=== PATIENT | male | born 1985 | race American Indian/Alaskan Native ===

== ENCOUNTER 2017-04-05 16:52 | Emergency (ER) | payer OTHER ==
[2017-04-05 17:08] VITALS: BP 125/80
[2017-04-05] MEDS ORDERED: Sodium Chloride 0.9% 10 ML Syringe FLUSH PRN (17:14)
--- NOTE | 2017-04-05 18:46 | EDM.PDOC ---
ED HPI GENERAL MEDICAL PROBLEM - General Chief Complaint: Neuro Symptoms/Deficits Stated Complaint: SENT FROM [facility] Time Seen by Provider: 04/05/17 17:00 Source of Information: Reports: Patient History Limitations: Reports: No limitations - History of Present Illness INITIAL COMMENTS - FREE TEXT/NARRATIVE: The patient developed some pain in his left neck that radiates to his left arm. He went to his doctor and he was concerned he had some left sided facial droop. The patient has some numbness to his left face and left arm. He also had some chest tightness. He says that is mostly gone. He has a mild headache. He has no vision changes or double vision. He has no abdominal pain , nausea and vomiting. he has no fever but he has some chills. He has no dysuria. This has never happened before. Onset: gradual Duration: Hour(s): Location: Reports: face, chest, upper extremity, left Quality: Reports: Sharp Severity: mild Improves with: Reports: None Worsens with: Reports: None Context: Reports: Other (He was at his computer) Associated Symptoms: Reports: chest pain, headaches. Denies: cough, fever/ chills, nausea/vomiting, shortness of breath - Related Data Allergies Allergy/AdvReac Type Severity Reaction Status Date / Time No Known Allergies Allergy Verified 04/05/17 17:08 Home Meds: Home Meds Furosemide [Lasix] 04/05/17 [History] Levothyroxine 04/05/17 [History] Omeprazole 04/05/17 [History] Past Medical History Cardiovascular History: Reports: Hypertension Social & Family History - Tobacco Use Smoking Status *Q: Never Smoker Second Hand Smoke Exposure: Yes - Caffeine Use Caffeine Use: Reports: None - Alcohol Use Days Per Week of Alcohol Use: 0 - Recreational Drug Use Recreational Drug Use: No ED ROS GENERAL - Review of Systems Review Of Systems: See Below Constitutional: Reports: no symptoms HEENT: Reports: Other (Left facial numbness and weakness) Respiratory: Reports: No Symptoms Cardiovascular: Reports: Chest pain Endocrine: Reports: no symptoms GI/Abdominal: Reports: No symptoms : Reports: no symptoms Musculoskeletal: Reports: no symptoms Skin: Reports: no symptoms Neurological: Reports: Headache, Numbness ED EXAM, NEURO - Physical Exam Exam: See Below Exam Limited By: No limitations General Appearance: alert, no apparent distress Ears: normal external exam Nose: normal inspection Head Exam: atraumatic, normocephalic Neck: normal inspection Respiratory/Chest: no respiratory distress, lungs clear, normal breath sounds Cardiovascular: regular rate, rhythm, no edema, no murmur GI/Abdominal: Soft, Non-Tender, No Organomegaly, No Mass Neurological: alert, no motor/sensory deficits, oriented x 3 EKG INTERPRETATION EKG Date: 04/05/17 Time: 17:22 Rhythm: NSR Rate (beats/min): 69 [place]: normal P-wave: present QRS: normal ST-T: normal QT: normal Course - Vital Signs Last Recorded V/S: Last Vital Signs Temp 98.5 F 04/05/17 16:58 Pulse 71 04/05/17 16:58 Resp 18 04/05/17 16:58 BP 125/80 04/05/17 16:58 Pulse Ox 100 04/05/17 16:58 - Orders/Labs/Meds Orders: Active Orders 24 hr Category Date Time Status Cardiac Monitoring [RC] . DIRECTED Care 04/05/17 17:14 Active EKG Documentation Completion [RC] STAT Care 04/05/17 17:14 Active Peripheral IV Care [RC] . DIRECTED Care 04/05/17 17:15 Active Head wo Cont [CT] Routine Exams 04/05/17 17:21 Taken Sodium Chloride 0.9% [Saline Flush] Med 04/05/17 17:14 Active 10 ml FLUSH ASDIRECTED PRN Peripheral IV Insertion Adult [OM.PC] Stat Oth 04/05/17 17:14 Ordered Medication Orders Sodium Chloride (Saline Flush) 10 ml FLUSH ASDIRECTED PRN PRN Reason: Keep Vein Open Last Admin: 04/05/17 17:25 Dose: 10 ml Labs: Laboratory Tests 04/05/17 04/05/17 Range/Units 17:25 17:25 WBC 6.96 (4.23-9.07) K/mm3 RBC 5.52 (4.63-6.08) M/mm3 Hgb 14.8 (13.7-17.5) gm/L Hct 44.8 (40.1-51.0) % MCV 81.2 (79.0-92.2) fl MCH 26.8 (25.7-32.2) pg MCHC 33.0 (32.2-35.5) g/dl RDW Std Deviation 40.7 (35.1-43.9) fL Plt Count 298 (163-337) K/mm3 MPV 10.3 (9.4-12.3) fl Neut % (Auto) 57.2 (34.0-67.9) % Lymph % (Auto) 32.8 (21.8-53.1) % [place] % (Auto) 7.9 (5.3-12.2) % Eos % (Auto) 1.6 (0.8-7.0) Baso % (Auto) 0.4 (0.1-1.2) % Neut # (Auto) 3.98 (1.78-5.38) K/mm3 Lymph # (Auto) 2.28 (1.32-3.57) K/mm3 [place] # (Auto) 0.55 (0.30-0.82) K/mm3 Eos # (Auto) 0.11 (0.04-0.54) K/mm3 Baso # (Auto) 0.03 (0.01-0.08) K/mm3 Sodium 138 (136-145) mEq/L Potassium 3.7 (3.5-5.1) mEq/L Chloride 103 (98-107) mEq/L Carbon Dioxide 28 (21-32) mEq/L Anion Gap 10.7 (5-15) BUN 6 L (7-18) mg/dL Creatinine 0.7 (0.7-1.3) mg/dL Est Cr Clr Drug Dosing 172.80 mL/min Estimated GFR (MDRD) > 60 (>60) mL/min BUN/Creatinine Ratio 8.6 L (14-18) Glucose 79 (74-106) mg/dL Calcium 8.6 (8.5-10.1) mg/dL Total Bilirubin 0.4 (0.2-1.0) mg/dL AST 15 (15-37) U/L ALT 32 (16-63) U/L Alkaline Phosphatase 147 H (46-116) U/L Troponin I < 0.017 (0.00-0.056) ng/mL Total Protein 7.8 (6.4-8.2) g/dl Albumin 3.6 (3.4-5.0) g/dl Globulin 4.2 gm/dL Albumin/Globulin Ratio 0.9 L (1-2) TSH 3rd Generation 0.015 L (0.358-3.74) uIU/mL Meds: Medications Generic Name Dose Route Start Last Admin Trade Name Sweetie PRN Reason Stop Dose Admin Sodium Chloride 10 ml 04/05/17 17:14 04/05/17 17:25 Saline Flush FLUSH 10 ml ASDIRECTED PRN Administration Keep Vein Open - Re-Assessments/Exams Free Text/Narrative Re-Assessment/Exam: 04/05/17 18:47 I ordered an IV saline lock, EKG, CT of his head and labs. His EKG shows nothing acute. 04/05/17 19:23 His EKG shows NSR at a rate of 69 with no acute changes. His CBC looks good. His CMP looks good except his Alk Phos was a little elevated at 147. His troponin was negative. His TSH was low at 0.015. He had thyroid cancer and had his thyroid removed. 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 His CT shows prominent cisterna magna and arachnoid cyst which are benign findings. No acute intracranial abnormality is seen. Sinus findings within the right maxillary sinus which appears to be chronic. This is a benign finding but it may be causing some symptoms for him. I will have him follow up with Dr Mendosa. Departure - Departure Time of Disposition: 07:30 Disposition: Home, Self-Care 01 Condition: good Clinical Impression: Atypical chest pain, Left arm numbness, Left facial numbness, Arachnoid cyst - Discharge Information Referrals: Demetrius Mendosa MD [Consulting Physician] - 1 Week Forms: ED Department Discharge Additional Instructions: Drink plenty of fluids. Follow up with your doctor and get a referral to Dr Mendosa the neurosurgeon at [facility] in [place]. Please return if you are worse. - My Orders Last 24 Hours: My Active Orders 04/05/17 17:14 Cardiac Monitoring [RC] . DIRECTED EKG Documentation Completion [RC] STAT Sodium Chloride 0.9% [Saline Flush] 10 ml FLUSH ASDIRECTED PRN Peripheral IV Insertion Adult [OM.PC] Stat 04/05/17 17:15 Peripheral IV Care [RC] . DIRECTED 04/05/17 17:21 Head wo Cont [CT] Routine - Assessment/Plan Last 24 Hours: My Active Orders 04/05/17 17:14 Cardiac Monitoring [RC] . DIRECTED EKG Documentation Completion [RC] STAT Sodium Chloride 0.9% [Saline Flush] 10 ml FLUSH ASDIRECTED PRN Peripheral IV Insertion Adult [OM.PC] Stat 04/05/17 17:15 Peripheral IV Care [RC] . DIRECTED 04/05/17 17:21 Head wo Cont [CT] Routine
--- NOTE | 2017-04-06 15:51 | CT ---
Head CT Technique: Multiple axial sections through the brain were obtained. Intravenous contrast was not utilized. Comparison: No previous intracranial imaging is available. Findings: Large cisterna magna is seen. This is a normal variant. Arachnoid cyst is noted within the anterior temporal fossa which is benign. No abnormal parenchymal densities are seen. Ventricles along with basal cisterns and sulci over the convexities are otherwise within normal limits. No abnormal parenchymal densities are seen. No evidence of intracranial hemorrhage. No midline shift or mass effect is seen. Bone window settings were reviewed which shows partially visualized mucosal thickening or retention cysts within the right inferior maxillary sinus. Other sinuses are clear. No calvarial abnormality is appreciated. Impression: 1. Prominent cisterna magna and arachnoid cyst as noted above which are benign findings. 2. No acute intracranial abnormality is seen. 3. Sinus findings within the right maxillary sinus which appear to be chronic. Diagnostic code #2 MTDD
== END 2017-04-05 19:40 | disposition home or self-care (01) ==
LOC: JD.ED 16:52
DX: R07.89 Other chest pain (principal); R20.0 Anesthesia of skin; G93.0 Cerebral cysts; I10 Essential (primary) hypertension
CPT/HCPCS: 36415; 70450; 80053; 84443; 84484; 85025; 93005; 99285; J7050; 99284

== ENCOUNTER 2017-10-11 12:59 | Emergency (ER) | payer BC, OTHER ==
[2017-10-11 13:11] VITALS: BP 111/62
--- NOTE | 2017-10-11 14:10 | EDM.PDOC ---
ED HPI GENERAL MEDICAL PROBLEM - General Chief Complaint: Chest Pain Stated Complaint: CHEST PAIN Time Seen by Provider: 10/11/17 13:29 Source of Information: Reports: Patient, Family (mother) History Limitations: Reports: No Limitations - History of Present Illness INITIAL COMMENTS - FREE TEXT/NARRATIVE: 32-year-old male presents for evaluation and treatment of chest discomfort, dizziness, lightheadedness, headaches and a warm sensation in his back. Patient reports that yesterday around 5 PM he developed dizziness and pain on the left side of his neck. He states today when he awoke he had chest discomfort described as a "poking" sensation on the left side of his chest. States this lasts for only a few seconds. No pain currently. Patient reports all morning he' s been feeling a warm sensation in the center of his back. He describes this as his "blood stops flowing ". He states that he felt cool. Reports associated symptoms of malaise, weakness, headaches, lightheadedness and fatigue. He denies any current chest pain, shortness of breath, fevers, cough, nausea, vomiting or syncope. He denies any pain or swelling in his legs. Patient also reports tingling to the dorsal left hand. States his this started a few days ago. No other numbness or tingling. Denies any abdominal pain. Patient reports that he sees cardiology. Sees Dr. Ibarra in [place]. Last visit was a couple months ago. Patient reports last week he was diagnosed with atrial fibrillation in [place]. He was in A. fib for approximately 6 hours. Reports that he had a conversion done which successfully converted him to normal sinus rhythm. He was started on metoprolol. He states he has not taken any metoprolol today. Patient reports he has previously had a chemical stress test done in [place] approximately 2 or 3 years ago. He has also had a Holter monitor in [place]. Does not sound he's ever had a cardiac angiogram. Patient states he is not a diabetic. Patient states does not smoke. He is unsure if he has high cholesterol. Reports his blood pressures normally run low and his pulse is normally in the 50s to 60s. Patient also reports that he develops chest pain with eating. He states that this is going on for several years. Is steadily getting worse. He states that he has now onlt eating things such as yogurt and rice but whenever he eats he develops heart racing, dizziness and chest discomfort. He has never had an upper endoscopy done. He denies any weight loss or weight gain. Denies any polydipsia. Patient's primary care provider is Dr. Eliz Garcia at [facility] in [place]. Past surgical history includes a cholecystectomy. Onset: Today Chest Pain Score (Numeric/FACES): 0 - Related Data Allergies Allergy/AdvReac Type Severity Reaction Status Date / Time No Known Allergies Allergy Verified 10/11/17 13:07 Home Meds: Home Meds Furosemide [Lasix] 20 mg PO DAILY 04/05/17 [History] Levothyroxine 175 mcg PO DAILY 04/05/17 [History] Omeprazole 20 mg PO DAILY 04/05/17 [History] Past Medical History Cardiovascular History: Reports: Afib, Hypertension Respiratory History: Reports: Sleep Apnea Endocrine/Metabolic History: Reports: Hypothyroidism Social & Family History - Tobacco Use Smoking Status *Q: Never Smoker Second Hand Smoke Exposure: Yes - Caffeine Use Caffeine Use: Reports: None - Alcohol Use Days Per Week of Alcohol Use: 0 - Recreational Drug Use Recreational Drug Use: No ED ROS GENERAL - Review of Systems Review Of Systems: See Below Constitutional: Reports: Malaise, Weakness, Fatigue. Denies: Fever, Weight Loss , Weight Gain Respiratory: Denies: Shortness of Breath Cardiovascular: Reports: Chest Pain ("poking to the left chest" none currently) , Lightheadedness. Denies: Edema, Syncope GI/Abdominal: Denies: Abdominal Pain, Nausea, Vomiting Musculoskeletal: Reports: Neck Pain (last night, left sided) Neurological: Reports: Dizziness, Headache, Tingling (left dorsal hand). Denies : Syncope ED EXAM, GENERAL - Physical Exam Exam: See Below Exam Limited By: No Limitations General Appearance: Alert, WD/WN, No Apparent Distress, Obese Eye Exam: Bilateral Eye: Normal Inspection Ears: Normal External Exam Respiratory/Chest: No Respiratory Distress, Lungs Clear, Normal Breath Sounds Cardiovascular: Normal Peripheral Pulses, Regular Rate, Rhythm, No Murmur Peripheral Pulses: 3+: Dorsalis Pedis (L), Dorsalis Pedis (R) Neurological: Alert, Oriented, Normal Cognition Psychiatric: Normal Mood, Flat Affect Skin Exam: Warm, Dry, Normal Color EKG INTERPRETATION EKG Date: 10/11/17 Time: 13:05 Rhythm: NSR Rate (Beats/Min): 60 [place]: LAD-Left [place] Deviation (mild 5 degrees) P-Wave: Present QRS: Normal ST-T: Normal QT: Normal EKG Interpretation Comments: NSR at 60 bpm. Poor "r" wave progression with delayed transition - mild AD 5 degrees. Decreased voltage in the limb leads. T wave flat in AVF. QT prolonged. Reviewed by myself and Dr. Mcnamara. Course - Vital Signs Last Recorded V/S: Last Vital Signs Temp 36.1 C 10/11/17 13:08 Pulse 61 10/11/17 13:08 Resp 16 10/11/17 13:08 BP 111/62 10/11/17 13:08 Pulse Ox 97 10/11/17 13:08 Orthostatic Blood Pressure [ 111/66 Standing] Orthostatic Blood Pressure [ 114/75 Sitting] Orthostatic Blood Pressure [ 123/60 Supine] - Orders/Labs/Meds Orders: Active Orders 24 hr Category Date Time Status Cardiac Monitoring [RC] . DIRECTED Care 10/11/17 13:38 Active EKG Documentation Completion [RC] ASDIRECTED Care 10/11/17 13:39 Active Orthostatic Vital Signs [RC] ASDIRECTED Care 10/11/17 16:25 Active Peripheral IV Care [RC] . DIRECTED Care 10/11/17 15:13 Active Peripheral IV Insertion Adult [OM.PC] Routine Oth 10/11/17 15:13 Ordered EKG 12 Lead [EK] Stat Ther 10/11/17 13:38 Ordered Labs: Laboratory Tests 10/11/17 10/11/17 10/11/17 Range/Units 14:33 14:33 14:33 WBC 7.12 (4.23-9.07) K/mm3 RBC 5.56 (4.63-6.08) M/mm3 Hgb 15.1 (13.7-17.5) gm/L Hct 44.4 (40.1-51.0) % MCV 79.9 (79.0-92.2) fl MCH 27.2 (25.7-32.2) pg MCHC 34.0 (32.2-35.5) g/dl RDW Std Deviation 38.3 (35.1-43.9) fL Plt Count 286 (163-337) K/mm3 MPV 10.4 (9.4-12.3) fl Neut % (Auto) 64.0 (34.0-67.9) % Lymph % (Auto) 26.5 (21.8-53.1) % [place] % (Auto) 7.6 (5.3-12.2) % Eos % (Auto) 1.5 (0.8-7.0) Baso % (Auto) 0.3 (0.1-1.2) % Neut # (Auto) 4.55 (1.78-5.38) K/mm3 Lymph # (Auto) 1.89 (1.32-3.57) K/mm3 [place] # (Auto) 0.54 (0.30-0.82) K/mm3 Eos # (Auto) 0.11 (0.04-0.54) K/mm3 Baso # (Auto) 0.02 (0.01-0.08) K/mm3 D-Dimer, Quantitative 1.09 H (0.19-0.59) mg/L Sodium 138 (136-145) mEq/L Potassium 4.0 (3.5-5.1) mEq/L Chloride 102 (98-107) mEq/L Carbon Dioxide 26 (21-32) mEq/L Anion Gap 14.0 (5-15) BUN 9 (7-18) mg/dL Creatinine 0.7 (0.7-1.3) mg/dL Est Cr Clr Drug Dosing 171.21 mL/min Estimated GFR (MDRD) > 60 (>60) mL/min BUN/Creatinine Ratio 12.9 L (14-18) Glucose 85 (74-106) mg/dL Hemoglobin A1c (4.50-6.20) % Calcium 9.0 (8.5-10.1) mg/dL Total Bilirubin 0.6 (0.2-1.0) mg/dL AST 22 (15-37) U/L ALT 37 (16-63) U/L Alkaline Phosphatase 143 H (46-116) U/L Troponin I < 0.017 (0.00-0.056) ng/mL Total Protein 8.1 (6.4-8.2) g/dl Albumin 3.5 (3.4-5.0) g/dl Globulin 4.6 gm/dL Albumin/Globulin Ratio 0.8 L (1-2) Lipase 92 (73-393) U/L TSH 3rd Generation 0.016 L (0.358-3.74) uIU/mL H. pylori IgG Antibody (NEGATIVE) 10/11/17 10/11/17 Range/Units 14:33 14:33 WBC (4.23-9.07) K/mm3 RBC (4.63-6.08) M/mm3 Hgb (13.7-17.5) gm/L Hct (40.1-51.0) % MCV (79.0-92.2) fl MCH (25.7-32.2) pg MCHC (32.2-35.5) g/dl RDW Std Deviation (35.1-43.9) fL Plt Count (163-337) K/mm3 MPV (9.4-12.3) fl Neut % (Auto) (34.0-67.9) % Lymph % (Auto) (21.8-53.1) % [place] % (Auto) (5.3-12.2) % Eos % (Auto) (0.8-7.0) Baso % (Auto) (0.1-1.2) % Neut # (Auto) (1.78-5.38) K/mm3 Lymph # (Auto) (1.32-3.57) K/mm3 [place] # (Auto) (0.30-0.82) K/mm3 Eos # (Auto) (0.04-0.54) K/mm3 Baso # (Auto) (0.01-0.08) K/mm3 D-Dimer, Quantitative (0.19-0.59) mg/L Sodium (136-145) mEq/L Potassium (3.5-5.1) mEq/L Chloride (98-107) mEq/L Carbon Dioxide (21-32) mEq/L Anion Gap (5-15) BUN (7-18) mg/dL Creatinine (0.7-1.3) mg/dL Est Cr Clr Drug Dosing mL/min Estimated GFR (MDRD) (>60) mL/min BUN/Creatinine Ratio (14-18) Glucose (74-106) mg/dL Hemoglobin A1c 5.30 (4.50-6.20) % Calcium (8.5-10.1) mg/dL Total Bilirubin (0.2-1.0) mg/dL AST (15-37) U/L ALT (16-63) U/L Alkaline Phosphatase (46-116) U/L Troponin I (0.00-0.056) ng/mL Total Protein (6.4-8.2) g/dl Albumin (3.4-5.0) g/dl Globulin gm/dL Albumin/Globulin Ratio (1-2) Lipase (73-393) U/L TSH 3rd Generation (0.358-3.74) uIU/mL H. pylori IgG Antibody Negative (NEGATIVE) Meds: Medications Discontinued Medications Generic Name Dose Route Start Last Admin Trade Name Freq PRN Reason Stop Dose Admin Sodium Chloride 100 mls @ 60 mls/hr 10/11/17 15:30 10/11/17 15:30 Normal Saline IV 60 mls/hr ASDIRECTED BREE Administration Iopamidol 100 ml 10/11/17 15:16 10/11/17 15:30 [id number] (76%) IVPUSH 10/11/17 15:17 100 ml ONETIME ONE Administration Iopamidol 50 ml 10/11/17 15:16 10/11/17 15:30 Isovue-370 (76%) IVPUSH 10/11/17 15:17 50 ml ONETIME ONE Administration Sodium Chloride 10 ml 10/11/17 15:13 10/11/17 15:30 Saline Flush FLUSH 10 ml ASDIRECTED PRN Administration Keep Vein Open Sodium Chloride 10 ml 10/11/17 15:16 10/11/17 15:42 Saline Flush FLUSH 10/11/17 15:17 10 ml ONETIME ONE Administration - Radiology Interpretation Free Text/Narrative:: 2 view chest xray impression per Dr. Dorsey: 1. Nothing acute is appreciated on two-view chest x-ray/ CT pulmonary angiogram impression per Dr. Dorsey: 1. Less than optimal opacification of pulmonary arteries. No findings of pulmonary embolus within the main or segmental branches. 2. Interval Thyroidectomy from prior CT exam. - Re-Assessments/Exams Free Text/Narrative Re-Assessment/Exam: 10/11/17 15:17 D-dimer elevated at 1.07. CT pulmonary angiogram ordered. Informed patient. Reports he is doing ok. Has a headache but declines pain medication. 10/11/17 16:49 I reviewed the chest x-ray, EKG, chest CT and lab results with the patient. He is in no obvious distress. Continues to deny any chest pain since entering the ER. He has been on the cardiac rn for most of his ER visit and his heart rate has been in the upper 50s to low 60s. He states he's had several "hard beats ". I feel that his symptoms are partially due to metoprolol. I'll have him stop this until he discusses this with cardiology tomorrow. Unsure exactly what the warm sensation in his back is from. Possibly from predromal shingles. I encouraged him to monitor for rash. At this point I am not finding anything acute. I feel he can safely go home tonight. 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 Patient reports he had previous thyroid cancer and had a thyroidectomy. He states he has been seen in endocrinology and recently had his levothyroxine dose decreased. We will discharge home. Discharge instructions as documented. 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 Recommend following up with your family medicine provider for a recheck of your symptoms. Rest. Recommend holding your metoprolol until seen by cardiology. Discuss this with your shotgun shell loading machine operator; if he would like you to continue on this. Please return to the ER should your symptoms change or worsen. - My Orders Last 24 Hours: My Active Orders 10/11/17 13:38 Cardiac Monitoring [RC] . DIRECTED EKG 12 Lead [EK] Stat 10/11/17 13:39 EKG Documentation Completion [RC] ASDIRECTED 10/11/17 15:13 Peripheral IV Care [RC] . DIRECTED Peripheral IV Insertion Adult [OM.PC] Routine 10/11/17 16:25 Orthostatic Vital Signs [RC] ASDIRECTED - Assessment/Plan Last 24 Hours: My Active Orders 10/11/17 13:38 Cardiac Monitoring [RC] . DIRECTED EKG 12 Lead [EK] Stat 10/11/17 13:39 EKG Documentation Completion [RC] ASDIRECTED 10/11/17 15:13 Peripheral IV Care [RC] . DIRECTED Peripheral IV Insertion Adult [OM.PC] Routine 10/11/17 16:25 Orthostatic Vital Signs [RC] ASDIRECTED
--- NOTE | 2017-10-11 14:50 | CR ---
Chest: Two views of the chest were obtained. Comparison: Prior chest x-ray of 12/01/14. Heart size and mediastinum are within normal limits. Lungs are clear. Bony structures appear within normal limits for the patient's age. Impression: 1. Nothing acute is appreciated on two-view chest x-ray. Diagnostic code #1
[2017-10-11] MEDS ORDERED: Sodium Chloride 0.9% 10 ML Syringe FLUSH PRN (15:13)
[2017-10-11] MEDS ORDERED: Iopamidol 755 MG/ML 50 ML Bottle IVPUSH ONE (15:16)
[2017-10-11] MEDS ORDERED: Sodium Chloride 0.9% 10 ML Syringe FLUSH ONE (15:16)
[2017-10-11] MEDS ORDERED: Iopamidol 755 Mg/ML 100 ML Bottle IVPUSH ONE (15:16)
[2017-10-11] MEDS ORDERED: Sodium Chloride 0.9% 100 ML IV SCH (15:30)
--- NOTE | 2017-10-11 16:01 | CT ---
CT chest Technique: Multiple axial sections through the chest were obtained. Intravenous contrast was utilized. Study performed as a pulmonary angiogram protocol. Comparison: Previous pulmonary angiogram CT study performed on 12/01/14. Findings: Pulmonary arteries are not optimally opacified. No filling defects seen within the main or segmental branches. Small subsegmental pulmonary emboli could be missed. Mediastinum and hilar regions show no adenopathy or mass. No pericardial effusion is seen. Small portion of the visualized upper abdominal structures shows previous cholecystectomy. Lungs are clear. Bony structures appear within normal limits for the patient's age. Previous thyroidectomy is noted with surgical clips at the base of the neck. Impression: 1. Less than optimal opacification of pulmonary arteries. No findings of pulmonary embolism within the main or segmental branches. 2. Interval thyroidectomy from prior CT exam. Diagnostic code #2
== END 2017-10-11 17:00 | disposition home or self-care (01) ==
LOC: JD.ED 12:59
DX: R07.89 Other chest pain (principal); I10 Essential (primary) hypertension; Z79.899 Other long term (current) drug therapy
CPT/HCPCS: 36415; 71020; 71275; 80053; 83036; 83690; 84443; 84484; 85025; 85379; 86677; 93005; 99285; J7030; J7050; Q9967

== ENCOUNTER 2018-01-13 11:46 | Emergency (ER) | payer BC, OTHER ==
[2018-01-13] MEDS ORDERED: Magnesium Sulfate/Water 2 GM in Premix Bag 1 BAG IV ONE (12:35)
[2018-01-13] MEDS ORDERED: Sodium Chloride 0.9% 1,000 ML IV ONE (12:35)
[2018-01-13] MEDS ORDERED: Diltiazem 25 MG/5 ML SDV IVPUSH ONE (12:35)
--- NOTE | 2018-01-13 12:44 | EDM.PDOC ---
ED HPI GENERAL MEDICAL PROBLEM - General Chief Complaint: Cardiovascular Problem Stated Complaint: [facility] Time Seen by Provider: 01/13/18 12:23 Source of Information: Reports: Patient History Limitations: Reports: No Limitations - History of Present Illness INITIAL COMMENTS - FREE TEXT/NARRATIVE: 32-year-old male who presents to the ED complaining of atrial fibrillation. Patient states he awoke this morning approximately 10:00 developing the sensation of his heart racing with mild intermittent substernal chest discomfort described as a 1 out of 10. Discomfort went away quite quickly. There is no acid reflux associated with this. He was mildly short of breath with onset. [place] dizzy with onset. Increased symptoms with exertion. Symptoms only lasted for a short period of time and resolved on its own. He continues have irregularly irregular heartbeat. No chest pain at this point. He has a history of atrial fibrillation that required cardioversion by Dr. Ibarra gis instructor at [facility]. This was approximately 4 months ago. He was started on Toprol-XL 50 mg 1 tablet daily and also decreased the levothyroxine dose from 450 micrograms every day to 325 g. He is taking ASA 81 mg and also omeprazole 20 mg twice a day for acid reflux. Patient has a history of thyroid cancer with thyroidectomy. In addition he denies any excessive caffeine use. Of note patient did eat chocolate this past Tuesday and states usually about 3 days after indulging himself he experiences these symptoms. He offers no additional complaints. Chest Pain Score (Numeric/FACES): 2 - Related Data Allergies Allergy/AdvReac Type Severity Reaction Status Date / Time No Known Allergies Allergy Verified 01/13/18 11:54 Home Meds: Home Meds Levothyroxine 175 mcg PO DAILY 04/05/17 [History] Omeprazole 20 mg PO DAILY 04/05/17 [History] Aspirin [Ecotrin] 81 mg PO DAILY 01/13/18 [History] Metoprolol Succinate [Toprol Xl] 50 mg PO DAILY PRN 01/13/18 [History] Past Medical History Cardiovascular History: Reports: Afib, Hypertension Respiratory History: Reports: Sleep Apnea Endocrine/Metabolic History: Reports: Hypothyroidism Social & Family History - Family History Family Medical History: Noncontributory - Tobacco Use Smoking Status *Q: Unknown Ever Smoked Second Hand Smoke Exposure: Yes - Caffeine Use Caffeine Use: Reports: None - Alcohol Use Days Per Week of Alcohol Use: 0 - Recreational Drug Use Recreational Drug Use: No ED ROS GENERAL - Review of Systems Review Of Systems: See Below Constitutional: Reports: No Symptoms Respiratory: Reports: No Symptoms Cardiovascular: Reports: No Symptoms GI/Abdominal: Reports: No Symptoms Musculoskeletal: Reports: No Symptoms Neurological: Reports: Headache (posterior mild) ED EXAM, GENERAL - Physical Exam Exam: See Below Exam Limited By: No Limitations General Appearance: Alert, WD/WN, No Apparent Distress Ears: Hearing Grossly Normal Nose: Normal Inspection Throat/Mouth: Normal Voice, No Airway Compromise Neck: Normal Inspection, Supple Respiratory/Chest: No Respiratory Distress, Lungs Clear, Normal Breath Sounds, No Accessory Muscle Use Cardiovascular: Normal Peripheral Pulses, No Murmur, Irregularly Irregular. No : Systolic Murmur Peripheral Pulses: 2+: Posterior Tibial (L), Posterior Tibial (R), 3+: Radial (L ), Radial (R) GI/Abdominal: Normal Bowel Sounds, Soft, Non-Tender, No Organomegaly, No Distention Extremities: Normal Inspection, Non-Tender, No Pedal Edema, Normal Capillary Refill Neurological: Alert, Oriented, CN II-XII Intact, Normal Cognition, No Motor/ Sensory Deficits Psychiatric: Normal Affect, Normal Mood Skin Exam: Warm, Dry, Intact, Normal Color Course - Vital Signs Last Recorded V/S: Last Vital Signs Temp 98.5 F 01/13/18 11:57 Pulse 72 01/13/18 18:00 Resp 24 H 01/13/18 13:50 BP 112/73 01/13/18 17:31 Pulse Ox 99 01/13/18 18:00 - Orders/Labs/Meds Orders: Active Orders 24 hr Category Date Time Status EKG Documentation Completion [RC] ASDIRECTED Care 01/13/18 12:07 Active EKG Documentation Completion [RC] STAT Care 01/13/18 13:52 Active EKG 12 Lead [EK] Stat Ther 01/13/18 12:06 Ordered Labs: Laboratory Tests 01/13/18 01/13/18 01/13/18 Range/Units 12:03 12:03 12:03 WBC 6.77 (4.23-9.07) K/mm3 RBC 5.73 (4.63-6.08) M/mm3 Hgb 15.3 (13.7-17.5) gm/L Hct 45.7 (40.1-51.0) % MCV 79.8 (79.0-92.2) fl MCH 26.7 (25.7-32.2) pg MCHC 33.5 (32.2-35.5) g/dl RDW Std Deviation 40.1 (35.1-43.9) fL Plt Count 255 (163-337) K/mm3 MPV 10.8 (9.4-12.3) fl Neut % (Auto) 68.6 H (34.0-67.9) % Lymph % (Auto) 21.7 L (21.8-53.1) % [place] % (Auto) 8.3 (5.3-12.2) % Eos % (Auto) 1.0 (0.8-7.0) Baso % (Auto) 0.3 (0.1-1.2) % Neut # (Auto) 4.64 (1.78-5.38) K/mm3 Lymph # (Auto) 1.47 (1.32-3.57) K/mm3 [place] # (Auto) 0.56 (0.30-0.82) K/mm3 Eos # (Auto) 0.07 (0.04-0.54) K/mm3 Baso # (Auto) 0.02 (0.01-0.08) K/mm3 PT 10.9 (8.0-13.0) SECONDS INR 1.00 APTT (22-36) SECONDS D-Dimer, Quantitative 0.98 H (0.19-0.59) mg/L Sodium 139 (136-145) mEq/L Potassium 3.9 (3.5-5.1) mEq/L Chloride 106 (98-107) mEq/L Carbon Dioxide 25 (21-32) mEq/L Anion Gap 11.9 (5-15) BUN 9 (7-18) mg/dL Creatinine 0.6 L (0.7-1.3) mg/dL Est Cr Clr Drug Dosing 199.75 mL/min Estimated GFR (MDRD) > 60 (>60) mL/min BUN/Creatinine Ratio 15.0 (14-18) Glucose 97 (74-106) mg/dL Calcium 9.0 (8.5-10.1) mg/dL Magnesium 2.2 (1.8-2.4) mg/dl Total Bilirubin 0.6 (0.2-1.0) mg/dL AST 24 (15-37) U/L ALT 35 (16-63) U/L Alkaline Phosphatase 136 H (46-116) U/L Troponin I < 0.017 (0.00-0.056) ng/mL Total Protein 8.0 (6.4-8.2) g/dl Albumin 3.6 (3.4-5.0) g/dl Globulin 4.4 gm/dL Albumin/Globulin Ratio 0.8 L (1-2) TSH 3rd Generation < 0.007 L (0.358-3.74) uIU/mL Urine Opiates Screen (NEGATIVE) Ur Buprenorphine Scrn (NEGATIVE) Ur Oxycodone Screen (NEGATIVE) Urine Methadone Screen (NEGATIVE) Ur Propoxyphene Screen (NEGATIVE) Ur Barbiturates Screen (NEGATIVE) Ur Tricyclics Screen (NEGATIVE) Ur Phencyclidine Scrn (NEGATIVE) Ur Amphetamine Screen (NEGATIVE) U Methamphetamines Scrn (NEGATIVE) U Benzodiazepines Scrn (NEGATIVE) U Cocaine Metab Screen (NEGATIVE) U Marijuana (THC) Screen (NEGATIVE) 01/13/18 01/13/18 Range/Units 12:03 12:03 WBC (4.23-9.07) K/mm3 RBC (4.63-6.08) M/mm3 Hgb (13.7-17.5) gm/L Hct (40.1-51.0) % MCV (79.0-92.2) fl MCH (25.7-32.2) pg MCHC (32.2-35.5) g/dl RDW Std Deviation (35.1-43.9) fL Plt Count (163-337) K/mm3 MPV (9.4-12.3) fl Neut % (Auto) (34.0-67.9) % Lymph % (Auto) (21.8-53.1) % [place] % (Auto) (5.3-12.2) % Eos % (Auto) (0.8-7.0) Baso % (Auto) (0.1-1.2) % Neut # (Auto) (1.78-5.38) K/mm3 Lymph # (Auto) (1.32-3.57) K/mm3 [place] # (Auto) (0.30-0.82) K/mm3 Eos # (Auto) (0.04-0.54) K/mm3 Baso # (Auto) (0.01-0.08) K/mm3 PT (8.0-13.0) SECONDS INR APTT 31 (22-36) SECONDS D-Dimer, Quantitative (0.19-0.59) mg/L Sodium (136-145) mEq/L Potassium (3.5-5.1) mEq/L Chloride (98-107) mEq/L Carbon Dioxide (21-32) mEq/L Anion Gap (5-15) BUN (7-18) mg/dL Creatinine (0.7-1.3) mg/dL Est Cr Clr Drug Dosing mL/min Estimated GFR (MDRD) (>60) mL/min BUN/Creatinine Ratio (14-18) Glucose (74-106) mg/dL Calcium (8.5-10.1) mg/dL Magnesium (1.8-2.4) mg/dl Total Bilirubin (0.2-1.0) mg/dL AST (15-37) U/L ALT (16-63) U/L Alkaline Phosphatase (46-116) U/L Troponin I (0.00-0.056) ng/mL Total Protein (6.4-8.2) g/dl Albumin (3.4-5.0) g/dl Globulin gm/dL Albumin/Globulin Ratio (1-2) TSH 3rd Generation (0.358-3.74) uIU/mL Urine Opiates Screen Negative (NEGATIVE) Ur Buprenorphine Scrn Negative (NEGATIVE) Ur Oxycodone Screen Negative (NEGATIVE) Urine Methadone Screen Negative (NEGATIVE) Ur Propoxyphene Screen Negative (NEGATIVE) Ur Barbiturates Screen Negative (NEGATIVE) Ur Tricyclics Screen Negative (NEGATIVE) Ur Phencyclidine Scrn Negative (NEGATIVE) Ur Amphetamine Screen Negative (NEGATIVE) U Methamphetamines Scrn Negative (NEGATIVE) U Benzodiazepines Scrn Negative (NEGATIVE) U Cocaine Metab Screen Negative (NEGATIVE) U Marijuana (THC) Screen Negative (NEGATIVE) Meds: Medications Discontinued Medications Generic Name Dose Route Start Last Admin Trade Name Freq PRN Reason Stop Dose Admin Diltiazem HCl 20 mg 01/13/18 12:35 01/13/18 12:45 Diltiazem IVPUSH 01/13/18 12:36 20 mg ONETIME ONE Administration Flecainide Acetate 200 mg 01/13/18 15:46 01/13/18 16:02 Tambocor PO 01/13/18 15:47 200 mg ONETIME ONE Administration Magnesium Sulfate 2 gm/ Premix 50 mls @ 25 mls/hr 01/13/18 12:35 01/13/18 12: 44 IV 01/13/18 14:34 25 mls/hr ONETIME ONE Administration Sodium Chloride 1,000 mls @ 999 mls/hr 01/13/18 12:35 01/13/18 12:44 Normal Saline IV 01/13/18 13:35 999 mls/hr ONETIME ONE Administration Sodium Chloride 100 mls @ 65 mls/hr 01/13/18 14:00 01/13/18 14:03 Normal Saline IV 65 mls/hr ASDIRECTED BREE Administration Iopamidol 100 ml 01/13/18 13:52 01/13/18 14:03 Isovue-370 (76%) IVPUSH 01/13/18 13:53 100 ml ONETIME ONE Administration Iopamidol 50 ml 01/13/18 13:52 01/13/18 14:03 Isovue-370 (76%) IVPUSH 01/13/18 13:53 50 ml ONETIME ONE Administration Sodium Chloride 10 ml 01/13/18 13:52 01/13/18 14:03 Saline Flush FLUSH 10 ml ONETIME PRN Administration IV FLUSH - Re-Assessments/Exams Free Text/Narrative Re-Assessment/Exam: Per patient he had sudden onset A. fib at approximately 10:00 this morning. IV established. Normal saline bolus with 999 mls per hour and magnesium 2 g IVP along with Cardizem 20 mg IV push. Initial labs and studies include CBC, chem 14, urine drug tox, coag studies, magnesium, troponin, TSH, UA, chest x-ray, EKG, and d-dimer. EKG revealed atrial fibrillation at a rate of 101 variable with no acute ST changes noted. 01/13/18 13:32 Reassessment, patient continues to be in atrial fibrillation at a rate of 90. Blood pressure 124/79 SPO2 98 respiratory rate 14. 01/13/18 13:33 CXR revealed enlarged heart. No acute findings.Final interpretation pending. Reviewed with . Labs reviewed: CBC essentially normal. D-dimer was 0.98. CMP did not reveal any concerning findings. TSH was less than 0.007 suggesting he is supratherapeutic on his levothyroxine dose. Urine drug tox was negative. CT angiogram impression: Patient body habitus results and somewhat less than optimal study. No filling defects of pulmonary embolism are seen within the main or segmental branches. Subsegmental pulmonary emboli could easily be missed. No additional abnormalities appreciated on CT study of the chest. EKG obtained 1415 history of fibrillation at a rate of 88 with no acute changes. 01/13/18 15:[address] 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 He reviewed previous echocardiogram and suggested trying flecainide 200 mg PO. This will facilitate chemical cardioversion from A. fib to hopefully sinus rhythm. If this does not convert then transfer the patient to [facility] for hospitalist admission to undergo cardioversion. Spoke with the patient and discussed risk benefits and alternative treatments for converting from A. fib to sinus rhythm. Risk being cardiac arrest and ventricular arrhythmias. He has agreed to undergo chemical cardioversion. If unsuccessful will require transfer to [place]. 1714 Patient remains in A-fib one hour after administration of flecainide. Vitals are stable. Will arrange transport to [facility]. [facility] contacted. 01/13/18 17:24 Dr. Carrillo drywall contractor hospitalists has accepted the patient. 01/13/18 17: 39 Reassessment, Tele indicated patient converted to normal sinus rhythm NSR. EKG will be obtained. EKG sinus rhythm at a rate of [address] changes noted. 01/13/18 17:52 Spoke with patient. He does not want to be transferred to [place]. I feel it is appropriate at this point. We'll decreases levothyroxin from 325 g every day to 300 ug. He will see his PCP for follow-up visit this coming Tuesday for reevaluation. He may make an appt with his gis instructor as needed. Return precautions discussed with the patient. Discharge instructions as documented. Departure - Departure Time of Disposition: 17:53 Disposition: Home, Self-Care 01 Condition: Good Clinical Impression: Paroxysmal A-fib Instructions: Atrial Fibrillation, Atrial Fibrillation, [id number] Referrals: Enrique Ibarra MD [Primary Care Provider] - Forms: ED Department Discharge Additional Instructions: Please decrease Synthroid dose from 325 g every day to 300 g every day. Follow -up with PCP for thyroid testing to ensure therapeutic levels. If you develop another episode of atrial fibrillation please return to the ED promptly for testing and treatment. Make an appointment with Dr. Ibarra your gis instructor as needed. - My Orders Last 24 Hours: My Active Orders 01/13/18 12:06 EKG 12 Lead [EK] Stat 01/13/18 12:07 EKG Documentation Completion [RC] ASDIRECTED 01/13/18 13:52 EKG Documentation Completion [RC] STAT - Assessment/Plan Last 24 Hours: My Active Orders 01/13/18 12:06 EKG 12 Lead [EK] Stat 01/13/18 12:07 EKG Documentation Completion [RC] ASDIRECTED 01/13/18 13:52 EKG Documentation Completion [RC] STAT
[2018-01-13] MEDS ORDERED: Iopamidol 755 MG/ML 50 ML Bottle IVPUSH ONE (13:52)
[2018-01-13] MEDS ORDERED: Sodium Chloride 0.9% 10 ML Syringe FLUSH PRN (13:52)
[2018-01-13] MEDS ORDERED: Iopamidol 755 Mg/ML 100 ML Bottle IVPUSH ONE (13:52)
[2018-01-13] MEDS ORDERED: Sodium Chloride 0.9% 100 ML IV SCH (14:00)
--- NOTE | 2018-01-13 14:43 | CR ---
Chest: Portable view of the chest was obtained. Comparison: Prior chest x-ray of 10/11/17. Heart size and mediastinum are normal. Lungs are clear. Surgical clips are seen at the base of the neck. Bony structures are grossly intact. Impression: 1. Nothing acute is identified on portable chest x-ray. Diagnostic code #2
--- NOTE | 2018-01-13 14:43 | CT ---
CT chest Technique: Multiple axial sections through the chest were obtained. Intravenous contrast was utilized. Study is somewhat limited due to patient body habitus. Findings: Pulmonary arteries show no discrete filling defects within the segmental or main pulmonary arteries. Smaller subsegmental pulmonary emboli could easily be missed. Mediastinum and hilar regions show no adenopathy or mass. No pericardial thickening is seen. Small portion of visualized upper abdominal structures are within normal limits. Lungs are clear with nothing acute being seen. No pleural effusions or pneumothorax are seen. Impression: 1. Patient body habitus results in somewhat less than optimal study. No filling defects of pulmonary embolism are seen within the main or segmental branches. Subsegmental pulmonary emboli could easily be missed. 2. No additional abnormality is appreciated on CT study of the chest. Diagnostic code #2
[2018-01-13] MEDS ORDERED: Flecainide 50 MG Tab PO ONE (15:46)
[2018-01-13 18:18] VITALS: BP 112/73
== END 2018-01-13 18:05 | disposition home or self-care (01) ==
LOC: SUPCPDRO 11:46 → JD.ED 11:46
DX: I48.0 Paroxysmal atrial fibrillation (principal); I10 Essential (primary) hypertension; E03.9 Hypothyroidism, unspecified; Z79.899 Other long term (current) drug therapy; Z79.82 Long term (current) use of aspirin
CPT/HCPCS: 36415; 71045; 71275; 80053; 80306; 83735; 84443; 84484; 85025; 85379; 85610; 85730; 93005; 96365; 96366; 96375; 99285; A9270; J3490; J7030; J7040; J7050; Q9967; 99284; J3475

== ENCOUNTER 2020-01-26 04:34 | Emergency (ER) | payer BC ==
--- NOTE | 2020-01-26 05:01 | EDM.PDOC ---
ED HPI GENERAL MEDICAL PROBLEM - General Chief Complaint: Eye Problems Stated Complaint: UNABLE TO SEE OUT OF LEFT EYE/CHEST PRESSURE Time Seen by Provider: 01/26/20 04:49 - History of Present Illness INITIAL COMMENTS - FREE TEXT/NARRATIVE: 34-year-old male presents the emergency room with vision loss in his left eye. Patient awoke around 3 AM and noticed he could not see out of his left eye. This lasted approximately 10 minutes. If he looked towards like his cell phone or something illuminated he saw white light otherwise he could not see. He is not sure when the onset time was with this as he woke up with it. Patient has a history of paroxysmal atrial fibrillation he is not on any blood thinners. He has noted some sharp jabs in his head, neck and in his chest that were very brief. Patient does not have a history of migraine headaches. - Related Data Allergies Allergy/AdvReac Type Severity Reaction Status Date / Time No Known Allergies Allergy Verified 01/26/20 06:12 Home Meds: Home Meds Levothyroxine 300 mcg PO DAILY 04/05/17 [History] Aspirin [Ecotrin] 81 mg PO DAILY 01/13/18 [History] Metoprolol Succinate [Toprol Xl] 50 mg PO DAILY PRN 01/13/18 [History] Diltiazem HCl [Cardizem] 30 mg PO DAILY 01/26/20 [History] Past Medical History Cardiovascular History: Reports: Afib, Hypertension Respiratory History: Reports: Sleep Apnea Endocrine/Metabolic History: Reports: Hypothyroidism Social & Family History - Family History Family Medical History: Noncontributory - Caffeine Use Caffeine Use: Reports: None ED ROS GENERAL - Review of Systems Review Of Systems: See Below Constitutional: Reports: No Symptoms HEENT: Reports: Other (See history of present illness otherwise unremarkable) Respiratory: Reports: No Symptoms Cardiovascular: Reports: Chest Pain Endocrine: Reports: No Symptoms GI/Abdominal: Reports: No Symptoms : Reports: No Symptoms Skin: Reports: No Symptoms Neurological: Reports: Other (Transient vision loss) ED EXAM GENERAL W FULL EYE - Physical Exam Exam: See Below Exam Limited By: No Limitations General Appearance: Alert, No Apparent Distress Eyelids: Bilateral: Normal Appearance Conjunctiva & Sclera: Bilateral: Normal Appearance Cornea Exam: Bilateral: Normal Appearance Extraocular Movements: Bilateral: Intact Pupillary Reaction: Bilateral: Brisk Ears: Normal External Exam, Normal [place], Hearing Grossly Normal, Normal TMs Nose: Normal Inspection, Normal Mucosa, No Blood Throat/Mouth: Normal Inspection, Normal Lips, Normal Teeth, Normal Gums, Normal Oropharynx, Normal Voice, No Airway Compromise Head: Atraumatic, Normocephalic Neck: Normal Inspection, Supple, Non-Tender, Full Range of Motion. No: Lymphadenopathy (L), Lymphadenopathy (R) Respiratory/Chest: No Respiratory Distress, Lungs Clear, Normal Breath Sounds Cardiovascular: Regular Rate, Rhythm, No Edema, No Murmur GI/Abdominal: Normal Bowel Sounds, Soft, Non-Tender, Other (Morbidly obese) EKG INTERPRETATION EKG Date: 01/26/20 Rhythm: NSR [place]: LAD-Left [place] Deviation P-Wave: Present QRS: Other (Poor R wave progression) ST-T: Other (Nonspecific nondiagnostic changes) QT: Normal Comparison: Change From Previous EKG (EKG from 01/15 shows atrial fibrillation otherwise no morphologic changes) Course - Vital Signs Last Recorded V/S: Last Vital Signs Temp 36.6 C 01/26/20 04:44 Pulse 71 01/26/20 04:44 Resp 16 01/26/20 04:44 BP 127/76 01/26/20 04:44 Pulse Ox 97 01/26/20 04:44 - Orders/Labs/Meds Orders: Active Orders 24 hr Category Date Time Status EKG Documentation Completion [RC] STAT Care 01/26/20 05:18 Active Labs: Laboratory Tests 01/26/20 01/26/20 01/26/20 Range/Units 05:30 05:30 05:30 WBC 7.95 (4.23-9.07) K/mm3 RBC 5.12 (4.63-6.08) M/mm3 Hgb 13.5 L D (13.7-17.5) gm/dl Hct 42.7 (40.1-51.0) % MCV 83.4 D (79.0-92.2) fl MCH 26.4 (25.7-32.2) pg MCHC 31.6 L (32.2-35.5) g/dl RDW Std Deviation 43.4 (35.1-43.9) fL Plt Count 310 (163-337) K/mm3 MPV 10.2 (9.4-12.3) fl Neut % (Auto) 64.8 (34.0-67.9) % Lymph % (Auto) 24.3 (21.8-53.1) % [place] % (Auto) 8.3 (5.3-12.2) % Eos % (Auto) 1.9 (0.8-7.0) Baso % (Auto) 0.4 (0.1-1.2) % Neut # (Auto) 5.16 (1.78-5.38) K/mm3 Lymph # (Auto) 1.93 (1.32-3.57) K/mm3 [place] # (Auto) 0.66 (0.30-0.82) K/mm3 Eos # (Auto) 0.15 (0.04-0.54) K/mm3 Baso # (Auto) 0.03 (0.01-0.08) K/mm3 ESR (0-15) mm/hr PT 10.9 (9.7-12.0) SECONDS INR 1.00 APTT 31 (22-31) SECONDS Sodium (136-145) mEq/L Potassium (3.5-5.1) mEq/L Chloride (98-107) mEq/L Carbon Dioxide (21-32) mEq/L Anion Gap (5-15) BUN (7-18) mg/dL Creatinine (0.7-1.3) mg/dL Est Cr Clr Drug Dosing mL/min Estimated GFR (MDRD) (>60) mL/min BUN/Creatinine Ratio (14-18) Glucose (74-106) mg/dL Calcium (8.5-10.1) mg/dL Total Bilirubin (0.2-1.0) mg/dL AST (15-37) U/L ALT (16-63) U/L Alkaline Phosphatase (46-116) U/L Troponin I < 0.017 (0.00-0.056) ng/mL C-Reactive Protein 2.9 H* (<1.0) mg/dL Total Protein (6.4-8.2) g/dl Albumin (3.4-5.0) g/dl Globulin gm/dL Albumin/Globulin Ratio (1-2) 01/26/20 01/26/20 Range/Units 05:30 05:30 WBC (4.23-9.07) K/mm3 RBC (4.63-6.08) M/mm3 Hgb (13.7-17.5) gm/dl Hct (40.1-51.0) % MCV (79.0-92.2) fl MCH (25.7-32.2) pg MCHC (32.2-35.5) g/dl RDW Std Deviation (35.1-43.9) fL Plt Count (163-337) K/mm3 MPV (9.4-12.3) fl Neut % (Auto) (34.0-67.9) % Lymph % (Auto) (21.8-53.1) % [place] % (Auto) (5.3-12.2) % Eos % (Auto) (0.8-7.0) Baso % (Auto) (0.1-1.2) % Neut # (Auto) (1.78-5.38) K/mm3 Lymph # (Auto) (1.32-3.57) K/mm3 [place] # (Auto) (0.30-0.82) K/mm3 Eos # (Auto) (0.04-0.54) K/mm3 Baso # (Auto) (0.01-0.08) K/mm3 ESR 58 H (0-15) mm/hr PT (9.7-12.0) SECONDS INR APTT (22-31) SECONDS Sodium 140 (136-145) mEq/L Potassium 4.1 (3.5-5.1) mEq/L Chloride 103 (98-107) mEq/L Carbon Dioxide 24 (21-32) mEq/L Anion Gap 17.1 H (5-15) BUN 12 (7-18) mg/dL Creatinine 0.7 (0.7-1.3) mg/dL Est Cr Clr Drug Dosing 163.21 mL/min Estimated GFR (MDRD) > 60 (>60) mL/min BUN/Creatinine Ratio 17.1 (14-18) Glucose 101 (74-106) mg/dL Calcium 8.5 (8.5-10.1) mg/dL Total Bilirubin 0.3 (0.2-1.0) mg/dL AST 13 L (15-37) U/L ALT 24 (16-63) U/L Alkaline Phosphatase 112 (46-116) U/L Troponin I (0.00-0.056) ng/mL C-Reactive Protein (<1.0) mg/dL Total Protein 7.5 (6.4-8.2) g/dl Albumin 3.2 L (3.4-5.0) g/dl Globulin 4.3 gm/dL Albumin/Globulin Ratio 0.7 L (1-2) - Re-Assessments/Exams Free Text/Narrative Re-Assessment/Exam: 01/26/20 07:26 Patient's case was discussed with Dr. Arredondo neurology at [facility] in [place] who recommended transferring the patient Case was then discussed with Dr. Hodgson in the emergency department at [facility] who kindly accepted the patient the patient declined EMS transfer and was insistent on going private car. Departure - Departure Time of Disposition: 07:08 Disposition: DC/Tfer to [facility] 02 Clinical Impression: Amaurosis fugax of left eye - Discharge Information Instructions: Amaurosis Fugax Referrals: Yohan Frankel MD [Primary Care Provider] - Forms: ED Department Discharge Additional Instructions: Go straight to the emergency room at [facility] in [place]. They will reevaluate your situation as they have capabilities we cannot do here in [place]. Do not stop in route do not have anything to eat in route Sepsis Event Note - Focused Exam Vital Signs: Vital Signs Temp Pulse Resp BP Pulse Ox 01/26/20 04:44 36.6 C 71 16 127/76 97 Date Exam was Performed: 01/26/20 Time Exam was Performed: 07:25 - My Orders Last 24 Hours: My Active Orders 01/26/20 05:18 EKG Documentation Completion [RC] STAT - Assessment/Plan Last 24 Hours: My Active Orders 01/26/20 05:18 EKG Documentation Completion [RC] STAT
--- NOTE | 2020-01-26 06:03 | CT ---
Addendum: No diagnostic code was given on previous report. Following is the correct diagnostic code: Diagnostic code #2 --- Addendum1 above dictated on [01/31/2020 07:23] by [Carole Dorsey Hilton J.] --- --- Addendum1 above signed on [01/31/2020 07:41] by [Carole Dorsey Hilton J.] --- --- Original report below dictated on [01/26/2020 06:00] by [Carole Dorsey Hilton J.] --- --- Original report below signed on [01/26/2020 06:00] by [Carole Dorsey Hilton J.] --- Head CT Technique: Multiple axial sections through the brain were obtained. Intravenous contrast was not utilized. Comparison: No prior intracranial imaging is available. Findings: Ventricles along with basal cisterns and sulci over the convexities are within normal limits. Prominent CSF space is noted posterior to the cerebellum as well as anteriorly within the right temporal fossa. Findings most likely represent arachnoid cysts. Posterior fossa cyst measures 7.6 cm x 3.6 cm. Temporal fossa cyst measures 4.6 cm x 2.9 cm. No abnormal parenchymal densities are seen. No evidence of intracranial hemorrhage. No midline shift or mass-effect is seen. CSF density also noted within the pituitary fossa compatible with so-called empty sella. Bone window settings were reviewed. No acute calvarial abnormality is appreciated. Visualized mastoid sinuses are clear. Rounded abnormality seen within both inferior maxillary sinus is most likely representing multiple retention cysts with largest measuring 1.9 cm. Impression: 1. Prominent CSF densities within the posterior to the cerebellum as well as within the anterior right temporal fossa. These findings are most likely due to benign arachnoid cysts. 2. Sinus findings within both inferior maxillary sinus is most likely due to chronic sinusitis. 3. So-called empty sella which is a normal variant if patient has no symptoms of hypopituitarism 4. No acute intracranial abnormality is identified. Diagnostic code # This report was dictated in [place] Standard Time --- Addendum1 signed ---
[2020-01-26 10:27] VITALS: BP 114/64; PULSE 75
== END 2020-01-26 07:15 ==
LOC: JD.ED 04:34
DX: G45.3 Amaurosis fugax (principal); I10 Essential (primary) hypertension; I48.91 Unspecified atrial fibrillation; E03.9 Hypothyroidism, unspecified; Z79.82 Long term (current) use of aspirin; Z79.899 Other long term (current) drug therapy
CPT/HCPCS: 36415; 70450; 70450-26; 80053; 84484; 85025; 85610; 85652; 85730; 86140; 93005; 93010; 99284; 99284-25

== ENCOUNTER 2020-03-04 12:53 | Emergency (ER) | payer BC ==
--- NOTE | 2020-03-04 15:12 | EDM.PDOC ---
ED HPI GENERAL MEDICAL PROBLEM - General Chief Complaint: Chest Pain Stated Complaint: CHEST AND BACK PAIN Time Seen by Provider: 03/04/20 13:07 Source of Information: Reports: Patient, RN Notes Reviewed - History of Present Illness INITIAL COMMENTS - FREE TEXT/NARRATIVE: 34 year old male had onset of L chest pain last evening that lasted 30 to 60 minutes. He than has had this off and off today as well. No radiation to shoulder or arm. Not short of breath. He has not been coughing. No fever or chills. He is on metropolol and diltiazam for rate control with hx of a fib. Chest Pain Score (Numeric/FACES): 6 - Related Data Allergies Allergy/AdvReac Type Severity Reaction Status Date / Time No Known Allergies Allergy Verified 03/04/20 13:05 Home Meds: Home Meds Levothyroxine 300 mcg PO DAILY 04/05/17 [History] Aspirin [Ecotrin] 81 mg PO DAILY 01/13/18 [History] Metoprolol Succinate [Toprol Xl] 25 mg PO BID 01/13/18 [History] Diltiazem HCl [Cardizem] 30 mg PO DAILY 01/26/20 [History] Past Medical History Cardiovascular History: Reports: Afib, Hypertension Respiratory History: Reports: Sleep Apnea Gastrointestinal History: Reports: Chronic Constipation Musculoskeletal History: Reports: Back Pain, Chronic Neurological History: Reports: TIA Psychiatric History: Reports: Anxiety, Depression Endocrine/Metabolic History: Reports: Hypothyroidism - Infectious Disease History Infectious Disease History: Reports: Chicken Pox - Past Surgical History HEENT Surgical History: Reports: Tonsillectomy GI Surgical History: Reports: Cholecystectomy Social & Family History - Family History Family Medical History: Noncontributory - Tobacco Use Smoking Status *Q: Never Smoker - Caffeine Use Caffeine Use: Reports: None - Recreational Drug Use Recreational Drug Use: No ED ROS GENERAL - Review of Systems Review Of Systems: See Below Constitutional: Denies: Fever, Chills, Diaphoresis HEENT: Reports: No Symptoms Respiratory: Denies: Shortness of Breath, Cough Cardiovascular: Reports: Chest Pain GI/Abdominal: Denies: Abdominal Pain, Nausea, Vomiting Musculoskeletal: Reports: No Symptoms Skin: Reports: No Symptoms Neurological: Reports: No Symptoms ED EXAM, GENERAL - Physical Exam Exam: See Below General Appearance: Alert, No Apparent Distress Eye Exam: Bilateral Eye: PERRL Nose: Normal Inspection Throat/Mouth: Normal Inspection Head: Atraumatic Neck: Supple Respiratory/Chest: No Respiratory Distress, Lungs Clear, Normal Breath Sounds Cardiovascular: Regular Rate, Rhythm GI/Abdominal: Non-Tender Extremities: No: Pedal Edema, Leg Pain, Redness Neurological: Alert, Oriented, No Motor/Sensory Deficits Skin Exam: Warm, Dry, Normal Color EKG INTERPRETATION EKG Date: 03/04/20 Rhythm: NSR [place]: Normal P-Wave: Present QRS: Normal ST-T: Normal Course - Vital Signs Last Recorded V/S: Last Vital Signs Temp 98.5 F 03/04/20 13:02 Pulse 73 03/04/20 13:02 Resp 23 H 03/04/20 13:02 BP 116/69 03/04/20 13:02 Pulse Ox 98 03/04/20 13:02 - Orders/Labs/Meds Orders: Active Orders 24 hr Category Date Time Status EKG 12 Lead [EKG Documentation Completion] [RC] STAT Care 03/04/20 13:32 Active Sodium Chloride 0.9% [Normal Saline] 100 ml Med 03/04/20 15:30 Active IV ASDIRECTED Medication Orders Sodium Chloride (Normal Saline) 100 mls @ 60 mls/hr IV ASDIRECTED BREE Labs: Laboratory Tests 03/04/20 03/04/20 Range/Units 14:30 14:30 D-Dimer, Quantitative 1.04 H (0.19-0.50) mg/L Sodium 138 (136-145) mEq/L Potassium 4.0 (3.5-5.1) mEq/L Chloride 104 (98-107) mEq/L Carbon Dioxide 24 (21-32) mEq/L Anion Gap 14.0 (5-15) BUN 10 (7-18) mg/dL Creatinine 0.7 (0.7-1.3) mg/dL Est Cr Clr Drug Dosing 163.21 mL/min Estimated GFR (MDRD) > 60 (>60) mL/min BUN/Creatinine Ratio 14.3 (14-18) Glucose 89 (74-106) mg/dL Calcium 8.6 (8.5-10.1) mg/dL Total Bilirubin 0.4 (0.2-1.0) mg/dL AST 17 (15-37) U/L ALT 22 (16-63) U/L Alkaline Phosphatase 133 H (46-116) U/L Troponin I < 0.017 (0.00-0.056) ng/mL Total Protein 7.5 (6.4-8.2) g/dl Albumin 3.3 L (3.4-5.0) g/dl Globulin 4.2 gm/dL Albumin/Globulin Ratio 0.8 L (1-2) Meds: Medications Generic Name Dose Route Start Last Admin Trade Name Freq PRN Reason Stop Dose Admin Sodium Chloride 100 mls @ 60 mls/hr 03/04/20 15:30 Normal Saline IV ASDIRECTED BREE Discontinued Medications Generic Name Dose Route Start Last Admin Trade Name Freq PRN Reason Stop Dose Admin Iopamidol 50 ml 03/04/20 15:29 [id number] (76%) IVPUSH 03/04/20 15:30 ONETIME ONE Iopamidol 100 ml 03/04/20 15:29 Isovue-370 (76%) IVPUSH 03/04/20 15:30 ONETIME ONE Sodium Chloride 10 ml 03/04/20 15:29 03/04/20 15:36 Saline Flush FLUSH 03/04/20 15:30 10 ml ONETIME ONE Administration - Re-Assessments/Exams Free Text/Narrative Re-Assessment/Exam: 03/04/20 15:25. CXR nl, Trop nl, D dimer elevated at !.04 CT pul angiogram ordered. 03/04/20 16:42. CT Angio, no evidence for PE. Departure - Departure Time of Disposition: 16:46 Disposition: Home, Self-Care 01 Condition: Fair Clinical Impression: Atypical chest pain Referrals: Yohan Frankel MD [Primary Care Provider] - Forms: ED Department Discharge Additional Instructions: Your heart and lungs have checked out well today here in the the ED at this time. You can alternate tylenol and ibuprofen if needed, follow up clinic if symptoms not resolving within 2 to 3 days as expected. Return to ED as discussed if symptoms worsening in any way. Sepsis Event Note - Evaluation Sepsis Screening Result: No Definite Risk - Focused Exam Vital Signs: Vital Signs Temp Pulse Resp BP Pulse Ox 03/04/20 13:02 98.5 F 73 23 H 116/69 98 Date Exam was Performed: 03/04/20 Time Exam was Performed: 16:42 - My Orders Last 24 Hours: My Active Orders 03/04/20 13:32 EKG 12 Lead [EKG Documentation Completion] [RC] STAT 03/04/20 15:30 Sodium Chloride 0.9% [Normal Saline] 100 ml IV ASDIRECTED - Assessment/Plan Last 24 Hours: My Active Orders 03/04/20 13:32 EKG 12 Lead [EKG Documentation Completion] [RC] STAT 03/04/20 15:30 Sodium Chloride 0.9% [Normal Saline] 100 ml IV ASDIRECTED
--- NOTE | 2020-03-04 15:20 | CR ---
Chest: Portable view of the chest was obtained. Comparison: Prior chest x-ray of 01/13/18 Heart size and mediastinum are within normal limits for portable technique. Lungs are clear with no acute parenchymal change. Bony structures are grossly intact. Impression: 1. Nothing acute is seen on portable chest x-ray. Diagnostic code #1 Study was dictated in MDT
[2020-03-04] MEDS ORDERED: Iopamidol 755 Mg/ML 100 ML Bottle IVPUSH ONE (15:29)
[2020-03-04] MEDS ORDERED: Iopamidol 755 MG/ML 50 ML Bottle IVPUSH ONE (15:29)
[2020-03-04] MEDS ORDERED: Sodium Chloride 0.9% 10 ML Syringe FLUSH ONE (15:29)
[2020-03-04] MEDS ORDERED: Sodium Chloride 0.9% 100 ML IV SCH (15:30)
--- NOTE | 2020-03-04 16:24 | CT ---
CT chest Technique: Multiple axial sections through the chest were obtained. Study performed as pulmonary antrum protocol. Comparison: Prior chest CT of 01/13/18. Findings: Pulmonary arteries are not optimally opacified. No filling defects are seen within the main or segmental branches. Smaller subsegmental pulmonary emboli could be easily missed. Aorta shows no aneurysm. No pericardial thickening is seen. Previous cholecystectomy is noted. Visualized upper abdominal structures shows no discrete abnormality. Lungs show no acute parenchymal change. No pleural effusions are seen. Bone window settings were reviewed. No acute osseous finding is appreciated. Impression: 1. Less than optimal pulmonary artery opacification as described above. No findings of pulmonary embolism within the main or segmental branches and smaller subsegmental pulmonary emboli could be missed. 2. No acute abnormality is appreciated. Diagnostic code #1 Study was dictated in MDT
[2020-03-04 18:42] VITALS: BP 118/69; PULSE 68
== END 2020-03-04 17:40 | disposition home or self-care (01) ==
LOC: JD.ED 12:53
DX: R07.89 Other chest pain (principal); I10 Essential (primary) hypertension; I48.91 Unspecified atrial fibrillation; E03.9 Hypothyroidism, unspecified; Z86.73 Personal history of transient ischemic attack (TIA), and cerebral infarction without residual deficits; Z79.899 Other long term (current) drug therapy; Z79.82 Long term (current) use of aspirin
CPT/HCPCS: 36415; 71045; 71045-26; 71275; 71275-26; 80053; 84484; 85379; 93005; 99285-25